=== PATIENT | female | born 1950 | race Caucasian/White ===

== ENCOUNTER 2019-01-18 06:15 | Day surgery (SDC) | payer MEDICARE, OTHER ==
[~2019-01-18] VITALS: Ht 165.1 cm; Wt 72.1 kg
[~2019-01-18 06:15] MED LIST: ADULT LOW DOSE81 MG PO; CALCIUM 600 +1 EACH PO; COUMADIN5 MG PO; FLAX SEED OIL1000 MG PO; GLUCOSAMINE CH1 EAC7 PO; HYDROCODON-ACE1 EAC8 PO; IBUPROFEN400 MG PO; LACTULOSE10 GM/15 M; LEVOTHYROXINE100 MCG PO; LEVOTHYROXINE112 MCG PO; LISINOPRIL20 MG PO; LOVENOX80 MG SUB-Q; METHOCARBAMOL750 MG PO; NEURONTIN300 MG PO
--- NOTE | 2019-01-18 08:05 | NUR ---
01/18/19 0805 Aleksandra Terrazas 0760 PT TO PACU SLEEPY BUT RESPONDS TO ORAL COMMANDS, RESP EVEN SHE IS ON 2L O2 PT PASSING GAS ABD SOFT. DENIES PAIN.
--- NOTE | 2019-01-19 06:22 | OR ---
[facility] [address], [place] [address] Signed DATE OF OPERATION: 01/18/2019 SURGEON: Elian Arriola MD PREOPERATIVE DIAGNOSES: 1. Screening. 2. Negative colonoscopy 2007. POSTOPERATIVE DIAGNOSES: 1. Sigmoid diverticulum x1. 2. Minimal internal hemorrhoids. PROCEDURE: Colonoscopy without biopsy. ESTIMATED BLOOD LOSS: None. INDICATIONS: Elizabeth is a 68-year-old female, asked to see me for a colonoscopy. She had a negative colonoscopy back in November 2007. She is now retired. She continues to walk every day and is very healthy and at her ideal body weight. In addition, her mother lived into her 90s and her maternal grandmother lived to be 105. Indeed, Elizabeth looks much younger than her stated age. She said there is no family history of colon cancer or polyps. She has no lower GI complaints. In the office, I gave Elizabeth a pamphlet on colonoscopy. She understands the nature of the test along with the risks including, but not limited to gas, bloating, crampy abdominal pain, bleeding, perforation, requiring surgery, and missed diagnosis. She also understands the need for IV conscious sedation. She had expressed understanding and wished to proceed. PROCEDURE NOTE: Elizabeth was taken into our endoscopy suite and placed in the left lateral decubitus position. She was given IV sedation with 5 mg of Versed and 100 mcg of fentanyl. A digital rectal exam was performed and this was unremarkable. The adult colonoscope was introduced and advanced under direct visualization of camera. It took some extra sedation and some abdominal compression in order to advance the scope directly into the cecum itself. The appendiceal orifice was quite evident. Her prep was quite excellent. The scope was then slowly withdrawn. We took pictures throughout for photodocumentation. We saw just a single diverticulum in the sigmoid colon. Upon retroflexion of scope in the rectum, she had very minimal internal hemorrhoid tissue. Electronically Signed By: ELIAN ARRIOLA MD 01/19/19 0622 PATIENT NAME: ELIZABETH MOLINA OPERATIVE REPORT DATE OF : 48 REPORT #: [id number] PHYSICIAN: ELIAN ARRIOLA MD PCP: WEI HOLLOWAY MD REPORT IS CONFIDENTIAL AND NOT TO BE RELEASED WITHOUT AUTHORIZATION [address], [place] [address] Signed After this, the gas was suctioned out and the colonoscope removed. Elizabeth tolerated the procedure quite well. RECOMMENDATIONS: Elizabeth can follow up in 10 years for repeat colonoscopy. Elian Arriola MD ALB/MODL /[id number] cc: MD Wei Arreola MD Michael John Brunsman, MD Copies: ELIAN ARRIOLA MD, RUSSELL BARR MD BRUNSMAN, MICHAEL JOHN MD ~ Electronically Signed By: ELIAN ARRIOLA MD 01/19/19 0622 PATIENT NAME: ELIZABETH MOLINA OPERATIVE REPORT DATE OF : 48 REPORT #: [id number] PHYSICIAN: ELIAN ARRIOLA MD PCP: WEI HOLLOWAY MD REPORT IS CONFIDENTIAL AND NOT TO BE RELEASED WITHOUT AUTHORIZATION
== END 2019-01-18 08:35 | disposition home or self-care (01) ==
LOC: DS 06:15
PROVIDERS: Colon & Rectal Surgery
PROC: 0DJD8ZZ Inspection of Lower Intestinal Tract, Via Natural or Artificial Opening Endoscopic (ICD-10-PCS; principal; 2019-01-18 06:45)
DX: Z12.11 Encounter for screening for malignant neoplasm of colon (principal); K57.30 Diverticulosis of large intestine without perforation or abscess without bleeding; K64.8 Other hemorrhoids; I10 Essential (primary) hypertension; K21.9 Gastro-esophageal reflux disease without esophagitis; E03.9 Hypothyroidism, unspecified; M19.90 Unspecified osteoarthritis, unspecified site; Z98.890 Other specified postprocedural states; Z88.5 Allergy status to narcotic agent; Z79.82 Long term (current) use of aspirin; Z79.899 Other long term (current) drug therapy; Z88.8 Allergy status to other drugs, medicaments and biological substances
CPT/HCPCS: 99153; G0500; J2250; J3010; J7120